=== PATIENT | male | born 1995 | race Caucasian/White ===

== ENCOUNTER → 2017-02-25 21:54 | Emergency (ER) | payer BC ==
[~2017-02-25 21:54] MED LIST: ANUSOL-HC25 MG/SUPP PR; BENTYL10 MG PO; CIPRO PO; DOCUSATE SODIU100 MG PO; NO MEDICATIONS; ZOFRAN PO
== END | disposition home or self-care (01) ==
LOC: SED 21:54
DX: L23.7 Allergic contact dermatitis due to plants, except food (principal); F17.200 Nicotine dependence, unspecified, uncomplicated
CPT/HCPCS: 96372; 99283; J1040